=== PATIENT | female | born 1980 | race Caucasian/White ===

== ENCOUNTER 2024-06-28 14:55 | Emergency (ER) | payer MEDICAID ==
[~2024-06-28] VITALS: Ht 167.6 cm; Wt 91.0 kg
[2024-06-28 15:47] VITALS: BP 174/81; PULSE 71; RESP 18; TEMP 98.5; O2SAT 100
[2024-06-28 16:45] LABS: EOSINOPHILS % 6.6 % (0.0-5.0); LYMPHOCYTES % 34.4 % (20.0-50.0); MEAN CORPUSCULAR HEMOGLOBIN 17.2 pg (28.0-32.0); MEAN CORPUSCULAR HGB CONC 26.4 g/dL (31.0-37.0); MEAN CORPUSCULAR VOLUME 65.2 fL (81.0-99.0); MEAN PLATELET VOLUME 8.8 fl (7.4-10.4); MONOCYTES % 7.5 % (2.0-8.0); NEUTROPHILS % 50.5 % (40.0-76.0); PLATELET 312 x1000/uL (130-400); RED BLOOD CELL COUNT 3.96 mill/uL (4.2-5.4); RED CELL DISTRIBUTION WIDTH 21.3 % (11.6-14.6); WHITE BLOOD COUNT 6.3 x1000/uL (4.5-11.0)
[2024-06-28 16:52] LABS: CHLORIDE 110 mEq/L (98-107); POTASSIUM 3.8 mEq/L (3.5-5.1); SODIUM 139 mEq/L (136-145)
[2024-06-28 16:53] LABS: CALCIUM 9.2 mg/dL (8.7-10.4); CARBON DIOXIDE 20 mEq/L (21-32)
[2024-06-28 16:58] LABS: CREATININE 0.6 mg/dL (0.6-1.0); GLUCOSE 111 mg/dL (70-105); UREA NITROGEN BLOOD 12 mg/dL (9-23)
[2024-06-28 16:59] LABS: DIFFERENTIAL COMMENT 1
[2024-06-28 17:02] LABS: HCG SCREEN NEGATIVE
[2024-06-28 17:06] LABS: ADD RBC MORPHOLOGY YES; HEMATOCRIT. 25.8 % (36.0-48.0); HEMOGLOBIN. 6.8 g/dL (12.0-16.0)
[2024-06-28 17:08] LABS: TROPONIN I HIGH SENSITIVITY < 4 ng/L (3.0-34)
[2024-06-28 17:58] LABS: ANISOCYTOSIS 3+; HYPOCHROMASIA 1+; MICROCYTOSIS 3+; PLATELET ESTIMATE NORMAL
[2024-06-28] MEDS ORDERED: NAPR-1176 MT (18:30)
== END 2024-06-28 17:20 | disposition home or self-care (01) ==
LOC: ER 15:01
DX: D64.9 Anemia, unspecified (principal); D25.9 Leiomyoma of uterus, unspecified; Z79.1 Long term (current) use of non-steroidal anti-inflammatories (NSAID)
CPT/HCPCS: 36415; 71045; 74176; 76830; 76856; 80048; 84484; 84703; 85025; 93005; 99285